=== PATIENT | male | born 1985 | race Caucasian/White ===

== ENCOUNTER 2022-05-07 14:53 | Emergency (ER) | payer BC ==
[2022-05-07] MEDS ORDERED: Lidocaine 1% 10 ML MDV INJECT ONE (15:55)
== END 2022-05-07 17:45 | disposition home or self-care (01) ==
LOC: JD.ED 14:53 → MERGE 14:53 → JD.ED 17:45
DX: S01.81XA Laceration without foreign body of other part of head, initial encounter (principal); W18.09XA Striking against other object with subsequent fall, initial encounter
CPT/HCPCS: 12013; 70450; 70450-26; 99283

== ENCOUNTER 2023-03-04 09:43 | Emergency (ER) | payer BC ==
[2023-03-04 10:40] LABS: HEMATOCRIT 44.7 % (40.1-51.0); HEMOGLOBIN 15.6 gm/dl (13.7-17.5); MEAN CORPUSCULAR HGB CONC 34.9 g/dl (32.2-35.5); MEAN CORPUSCULAR VOLUME 83.1 fl (79.0-92.2); MEAN PLATELET VOLUME 10.8 fl (9.4-12.3); PLATELET COUNT,PLT 234 K/mm3 (163-337); RED BLOOD CELL COUNT 5.38 M/mm3 (4.63-6.08); WHITE BLOOD CELL COUNT,WBC 5.55 K/mm3 (4.23-9.07)
[2023-03-04 10:43] LABS: INR 1.08; PROTHROMBIN TIME 11.5 SECONDS (9.7-12.0)
[2023-03-04 10:45] LABS: A/G RATIO 1.1 (1-2); ALBUMIN 4.1 g/dl (3.4-5.0); ANION GAP 12.2 (5-15); BILIRUBIN TOTAL 0.7 mg/dL (0.2-1.0); CALCIUM 9.3 mg/dL (8.5-10.1); CREATININE 1.3 mg/dL (0.7-1.3); EST CRCL DRUG DOSING (CG) 92.99 mL/min; POTASSIUM,K 4.2 mEq/L (3.5-5.1)
[2023-03-04 10:49] LABS: APPEARANCE,URINE CLEAR (Clear); BILIRUBIN,URINE NEGATIVE (Negative); COLOR,URINE YELLOW (Yellow); GLUCOSE,URINE NEGATIVE (Negative); KETONES,URINE NEGATIVE (Negative); LEUKOCYTE ESTERASE,URINE NEGATIVE (Negative); NITRITE,URINE NEGATIVE (Negative); OCCULT BLOOD,URINE NEGATIVE (Negative); PROTEIN,URINE NEGATIVE (Negative); UROBILINOGEN,URINE 0.2 (0.2-1.0)
[2023-03-04 11:10] LABS: BAND PERCENT MAN 0 % (0-10); BASOPHILS PERCENT MAN 0 (0.2-1.2); EOSINOPHILS PERCENT MAN 0 % (0.8-7.0); LYMPHOCYTES % ATYPICAL MANUAL 0 %; LYMPHOCYTES PERCENT MAN 42 % (20-40); MONOCYTES PERCENT MAN 2 % (2-10)
[2023-03-04 11:20] LABS: PLATELET COUNT ESTIMATE ADEQUATE
== END 2023-03-04 11:50 | disposition home or self-care (01) ==
LOC: JD.ED 09:43
DX: R07.89 Other chest pain (principal)
CPT/HCPCS: 36415; 71045; 71045-26; 80053; 81003; 84484; 85007; 85027; 85610; 93005; 93010; 99284; 99285

== ENCOUNTER 2024-03-03 21:27 | Emergency (ER) | payer BC | END 2024-03-03 23:20 | disposition home or self-care (01) | LOC: JD.ED 21:27 | DX: S83.004A Unspecified dislocation of right patella, initial encounter (principal); Z79.899 Other long term (current) drug therapy; W22.8XXA Striking against or struck by other objects, initial encounter | CPT/HCPCS: 99282; 99283 ==